=== PATIENT | female | born 1995 | race Caucasian/White ===

== ENCOUNTER → 2020-01-15 | Outpatient (CLI) | payer OTHER, SELFPAY ==
[2020-01-15 12:02] VITALS: BMI 31.1
== END | disposition home or self-care (01) ==
LOC: LABSPEC 15:29
PROVIDERS: Visit Provider Physician Assistant
DX: J02.9 Acute pharyngitis, unspecified (principal); R05 Cough
CPT/HCPCS: 87635; U0003

== ENCOUNTER → 2020-09-02 14:25 | Outpatient (CLI) | payer OTHER, SELFPAY ==
[2020-01-15 12:02] VITALS: BMI 31.1
[2020-09-10 08:33] LABS: HPV Reflexed? NOT INDICATED
== END ==
PROVIDERS: Visit Provider Obstetrics & Gynecology
DX: Z12.4 Encounter for screening for malignant neoplasm of cervix (principal)
CPT/HCPCS: 88175; G0145

== ENCOUNTER 2024-01-02 10:24 | Observation (INO) | payer OTHER, SELFPAY ==
[2024-01-02 10:25] VITALS: BP 136/97; PULSE 93; RESP 19; TEMP 36.1; O2SAT 100; BMI 31.1
[2024-01-02 10:36] VITALS: O2SAT 97
--- NOTE | 2024-01-02 10:36 | CT_ITS ---
STUDY: CT BRAIN WITHOUT CONTRAST REASON FOR EXAM: Female, 28 years old. LUE weak/tremor RADIATION DOSAGE (If Supplied By Facility): CTDIvol = ( 44.99 ) mGy, DLP = ( 782.05 ) mGycm TECHNIQUE: Transaxial CT imaging of the brain was performed without administration of intravenous contrast material. Individualized dose optimization techniques were used for this CT. COMPARISON: No relevant priors. FINDINGS: Normal soft tissue structures. Normal calvarium. Normal size ventricles and extra-axial spaces for the patient''s age. Normal white matter tracts of the cerebral hemispheres. Normal basal ganglia and thalami. Normal brainstem. Normal cerebellum. There is no intracranial hemorrhage. There are no findings of an acute ischemic infarction. Normal visualized paranasal sinuses. CT/Brain/Head without Contrast IMPRESSION: Normal unenhanced CT scan of the brain. Electronically Signed: Chino Cole MD at 11:27 EST ,
--- NOTE | 2024-01-02 10:36 | EKG12_ITS ---
Test Reason : NUMB/TINGLY Blood Pressure : */* mmHG Vent. Rate : 77 BPM Atrial Rate : 77 BPM P-R Int : 160 ms QRS Dur : 74 ms QT Int : 382 ms P-R-T Axes : 64 -2 60 degrees QTcB Int : 432 ms Normal sinus rhythm Normal ECG Confirmed by Andre Salas ([id number]), dictionary editor MICHELLE AGUILAR ([id number]) on 01/03/2024 9:54:28 AM Referred By: Confirmed By: Andre Salas
--- NOTE | 2024-01-02 10:37 | ED.VIS.STROK ---
HPI History of Present Illness Chief Complaint: Numb/Ting Informant: patient and PCP Narrative Narrative: 28-year-old female sent over from primary care office after being evaluated for left arm tremor and weakness that started 2 days ago. She states that about 1:15 in the afternoon 2 days ago, she felt nauseated and vomited, then about an hour later her left arm started tremoring and has not stopped ever since. She has been able to sleep, she is not sure if it is doing it when she is sleeping or not but while she has been awake it has been shaking and weak. She denies any other neurologic symptoms or headaches or neck pain or injury/falls; no problems with talking or understanding others, leg or facial involvement. She has had no syncope with any of this. She has family member that is had a stroke in the past. Patient has had seizures in the past, she states she had a grand mal seizure when she was 5 but never again, and she had some absence seizures, but these were when she was a child and she has not had any since. PFSH PFS Home Medications ?Medication ?Instructions ?Recorded ?Last Taken ?Type cariprazine 1.5 mg capsule 1.5 mg PO DAILY DEPRESSION 01/02/24 01/02/24 History (Vraylar) escitalopram oxalate 20 mg tablet 20 mg PO DAILY DEPRESSION 01/02/24 01/02/24 History norgestimate 0.25 mg-ethinyl 1 tab PO DAILY HORMONES 01/02/24 01/02/24 History estradiol 35 mcg tablet (Sprintec (28)) semaglutide (weight loss) 2.4 2.4 mg subcut MO DIABETES 01/02/24 12/31/23 History mg/0.75 mL subcutaneous pen injector Allergy/AdvReac Type Severity Reaction Status Date / Time ondansetron (From Zofran) Allergy Intermediate Hives Verified 01/02/24 10:26 codeine Allergy NEEDS Verified 01/02/24 10:26 FOLLOW-UP Social History (Updated 01/02/24 @ 10:[address] Kyle Erwin MD) Smoking Status: Never smoker substance use type: does not use ROS ROS ED Constitutional Constitutional ED: Denies chills or fever(s) Eyes Eyes: Denies change in vision or diplopia ENT ENT ED: Denies rhinorrhea or sore throat Cardiovascular Cardiovascular: Denies chest pain or palpitations Respiratory/Chest Respiratory/Chest: Denies cough or dyspnea Gastrointestinal Gastrointestinal: Reports nausea and vomiting; Denies abdominal pain or diarrhea Genitourinary Genitourinary ED: Denies dysuria or hematuria Musculoskeletal Musculoskeletal: Denies back pain or neck pain Integumentary Denies abscess or rash Neurologic Neurologic: Reports tremor(s) and weakness; Denies headache(s) or paresthesias Psychiatric Psychiatric: Denies anxiety or suicidal thoughts EXAM Physical Exam Const Vital Signs: 01/02/24 10:25 01/02/24 10:36 Temperature 97 F L Temperature Source Temporal Pulse Rate 93 Respiratory Rate 19 H Blood Pressure 136/97 H Blood Pressure Mean 110 Pulse Ox 100 97 Oxygen Delivery Method Room Air Room Air Positive well nourished and well developed General Appearance ED: well developed and NAD HEENT Reports moist mucous membranes normocephalic and atraumatic Eyes PERRL and EOMs intact bilaterally Neck full ROM and supple Resp normal respiratory effort and clear to auscultation bilaterally Cardio regular rate, regular rhythm and no murmurs GI non-tender and non-distended Auscultation: normoactive bowel sounds Palpation: soft Back/Spine no CVA tenderness General Back: other FROM Extremity normal to inspection General Extremety ED: Negative for edema, pulses abnormal or tenderness General Extremity: Negative for edema or pulses abnormal Neuro oriented x3, CN's II-XII intact bilaterally and no sensory deficits noted Neuro Narrative: No sensory deficits. No hemming attention. Normal speech. Normal cranial nerve exam. She is weak throughout all muscle groups proximally, distally including weaver dobby loom, of the left upper extremity and there is a constant tremor that does not [place] with performing [id number] which is otherwise normal bilaterally. [id number] bilaterally normal. She does briefly stop the tremor when she closes her eyes but then it restarts within a couple seconds. Sensorium / Orientation: awake and alert Psych mental status grossly normal Skin no rashes or lesions noted and no wounds NIHSS NIHSS Initial: 1a Level of Consciousness: 0 1b LOC Questions (Score 2 if aphasic/stupor): 0 1c LOC Commands (Only score 1st attempt): 0 2 Best Gaze (If aphasic, use reflexive mvmts.): 0 3 Visual: 0 4 Facial Palsy: 0 5 Motor Arm Right (UN = amputation/fusion): 0 5 Motor Arm Left: 1 6 Motor Leg Right: 0 6 Motor Leg Left: 0 7 Limb ataxia (Only + if out of proportion): 0 8 Sensory (Aphasia/stupor=0 or 1, coma=2): 0 9 Best Language: 0 10 Dysarthria (mute, coma=2, intubated=UN): 0 11 Extinction and Inattention (only scored if +): 0 Total Score: 1 MDM MDM MDM Narrative Medical decision making narrative: Although stroke is in the differential here, my suspicion is that this is something else neurologic such as simple partial seizure, or intracranial mass or mass or something else primary neurologic. Started with a plain CT of the head, my suspicion is that she will need to be admitted and have MRI and EEG testing. Her rhythm is normal and EKG is normal. I reviewed the CT images and report which I agree with, it is negative for anything acute. Her labs are also noted and unremarkable. Discussed with hospitalist for admission. Lab Data Attestation: I reviewed the patient's lab results. Labs: Laboratory Results - last 24 hr 01/02/24 10:41 WBC 9.5 RBC 4.73 Hgb 14.0 Hct 41.5 MCV 87.7 MCH 29.6 MCHC 33.7 RDW Std Deviation 39.8 RDW Coeff of Olga 12.4 Plt Count 323 MPV 9.0 Immature Gran % (Auto) 0.400 Neut % (Auto) 69.9 Lymph % (Auto) 24.0 Leslie % (Auto) 5.3 Eos % (Auto) 0.2 Baso % (Auto) 0.2 Absolute Neuts (auto) 6.7 Absolute Lymphs (auto) 2.28 Nucleated RBC % 0 PT 13.5 INR 1.0 APTT 25.9 Sodium 137 Potassium 3.7 Chloride 103 Carbon Dioxide 29.0 Anion Gap 5 BUN 13 Creatinine 0.98 Estim Creat Clear Calc 83.93 Est GFR (MDRD) Af Amer 86 Est GFR (MDRD) Non-Af 71 BUN/Creatinine Ratio 13.3 Glucose 89 Calcium 9.6 Troponin I High Sens < 3 L Radiography Diagnostic Testing: Clinical Impression(s) from Imaging Studies Brain CT 01/02/24 10:36 IMPRESSION: Normal unenhanced CT scan of the brain. Electronically Signed: Chino Cole MD at 11:27 EST , Rhythm Strip Rhythm Strip: Sinus Rhythm Rate: 90 Ectopy: None EKG Initial EKG: Attestation: I personally reviewed and interpreted this EKG as follows: Interpretation: Sinus Rhythm and No Acute Injury Pattern Comments: Nml axis & intervals; nml EKG Management Discussion w/another healthcare provider: Hospitalist Stroke Documentation Questions Stroke Team Activated: No (Due to timing) Was Patient considered for Endovascular Intervention?: No-CTA not indicated IV Thrombolytic Administered: No (Due to timing) Discharge Plan Dx/Rx/DC Orders Clinical Impression: Left arm weakness, Seizure-like activity Disposition Disposition: Acute Care Hospital [facility] [place] [facility]
[2024-01-02 10:49] LABS: Absolute Lymphocyte Count 2.28 X10^3/uL (0.83-4.51); Absolute Neutrophil Count 6.7 X10^3/uL (2.0-7.7); Basophil# 0.02 X10^3/uL; Basophil% 0.2 % (0-1); Eosinophil# 0.02 X10^3/uL; Eosinophils% 0.2 % (0-5); Hematocrit 41.5 % (37-47); Lymphocyte # 2.28 X10^3/ul (0.83-4.51); Mean Corp Hgb Conc 33.7 g/dL (32-36); Mean Corpuscular Hgb 29.6 pg (27.0-32.0); Mean Corpuscular Volume 87.7 fL (81-99); Monocyte% 5.3 % (0-10); NRBC Flagged by Analyzer 0 % (0-5); Neutrophil # 6.65 X10^3/uL (2.7-7.7); Neutrophil % 69.9 % (47-70); Platelet Count 323 K/mm3 (150-450); RBC Distribution Width CV 12.4 % (11.6-14.6); RBC Distribution Width SD 39.8 fl (35.1-43.9); Red Blood Count 4.73 M/mm3 (4.2-5.4); White Blood Count 9.5 K/mm3 (4.4-11.0)
[2024-01-02 10:55] LABS: Prothrombin Time (Protime)PT. 13.5 SECONDS (11.7-14.9)
[2024-01-02 10:56] LABS: Partial Thromboplast Time 25.9 Seconds (24.1-36.2)
[2024-01-02 11:03] LABS: Anion Gap 5 (5-15); BUN 13 mg/dL (7-18); BUN/Creat Ratio 13.3 RATIO (10-20); Calcium,Total 9.6 mg/dL (8.5-10.1); Chloride 103 mmol/L (98-107); Creatinine, Serum 0.98 mg/dL (0.55-1.02); EST Glomerular Filtration Rate 71 mL/min (>60); Est Glom Filt Rate - Afr Amer 86 mL/min (>60); Estimated Creatinine Clearance 83.93 ml/min; Glucose 89 mg/dL (74-106); Potassium 3.7 mmol/L (3.5-5.1); Sodium Level 137 mmol/L (136-145); Troponin-I HS < 3 pg/mL (3.0-54.0)
--- NOTE | 2024-01-02 12:18 | CT_ITS ---
STUDY: CTA HEAD AND NECK WITH CONTRAST REASON FOR EXAM: Female, 28 years old. R arm weakness RADIATION DOSAGE (If Supplied By Facility): CTDIvol = ( 15.34 ) mGy, DLP = ( 701.52 ) mGycm TECHNIQUE: CT angiography was performed with a multi-detector CT scanner. Data acquisition was obtained from the skull base through the vertex following intravenous administration of 100mL Isovue 370. MIP images were reconstructed from the axial data set. Post-processing of the angiographic images was performed, with multiplanar reformation and 3D reconstruction. Individualized dose optimization techniques were used for this CT. COMPARISON: No relevant priors. FINDINGS: Normal bilateral petrous carotid arteries. Normal right cavernous carotid artery with a normal supraclinoid bifurcation. Normal left cavernous carotid artery with a normal supraclinoid bifurcation. Normal right A1 segments of the anterior cerebral artery. Normal left A1 segments of the anterior cerebral artery. Normal intact anterior communicating artery (ACOM). Normal bilateral A2 segments of the anterior cerebral arteries. Normal right M1 and M2 segments of the middle cerebral arteries, with a normal M1 bifurcation. Normal left M1 and M2 segments of the middle cerebral arteries, with a normal M1 bifurcation. Normal right posterior communicating artery (PCOM). Normal left posterior communicating artery (PCOM). Normal bilateral vertebral arteries. Normal basilar artery with a normal basilar bifurcation. The visualized bilateral superior cerebellar (SCA) arteries are normal. Normal bilateral P1, P2 and visualized P3 segments of the posterior cerebral arteries. There is no demonstrated aneurysm of the tunica-biloxi of [place]. There is no demonstrated abnormality of the visualized brain. AORTIC ARCH: Normal visualized aortic arch. Normal origins of the brachiocephalic, left common carotid, and left subclavian arteries. RIGHT CAROTID ARTERIES: Normal right common carotid artery (CCA). Normal right common carotid bulb. Normal origin of the right internal carotid (ICA) artery without a hemodynamically significant stenosis. Normal visualized cervical portion of the right internal carotid artery. Normal origin of the right external carotid artery (ECA). LEFT CAROTID ARTERIES: Normal left common carotid artery (CCA). Normal left common carotid bulb. Normal origin of the left internal carotid (ICA) artery without a hemodynamically significant stenosis. Normal visualized cervical portion of the left internal carotid artery. Normal origin of the left external carotid artery (ECA). VERTEBRAL ARTERIES: Normal bilateral vertebral arteries. CT/CTA Head AND Neck W/ Contrast IMPRESSION: Normal CTA Head and neck with contrast. Electronically Signed: Chino Cole MD at 12:56 EST ,
--- NOTE | 2024-01-02 12:18 | MRI_ITS ---
STUDY: MRI CERVICAL SPINE WITHOUT CONTRAST REASON FOR EXAM: Female, 28 years old. R arm weakness TECHNIQUE: Standardized fat and water weighted pulse sequences were obtained in the sagittal and axial planes. COMPARISON: None FINDINGS: Normal foramen magnum and brainstem-cervical cord junction. Normal craniovertebral junction. Normal anterior atlantoaxial articulation. Normal odontoid process. There is reversal of the normal cervical lordosis. There is no acute fracture. Normal vertebral bodies and posterior osseous elements. C2-3: Normal endplates. Normal disc height, signal and morphology. Normal central canal and intervertebral neural foramina. C3-4: Disc bulge. Normal central canal and intervertebral neural foramina. C4-5: Disc bulge with mild spurring. Normal central canal and intervertebral neural foramina. C5-6: Normal endplates. Normal disc height, signal and morphology. Normal central canal and intervertebral neural foramina. C6-7: Mild spurring with central right paracentral disc protrusion, series 12 image 38. Mild canal stenosis. Uncovertebral spurring and mild left foraminal narrowing. C7-T1: Normal endplates. Normal disc height, signal and morphology. Normal central canal and intervertebral neural foramina. Normal cervical cord. Normal visualized soft tissue structures. MRI/Spine Cervical (Routine) IMPRESSION: Disc herniation to the right at C6-7. Electronically Signed: Kyle James MD at 20:15 EST ,
--- NOTE | 2024-01-02 12:18 | MRI_ITS ---
STUDY: MRI BRAIN WITH AND WITHOUT CONTRAST REASON FOR EXAM: Female, 28 years old. R arm tremor and weakness TECHNIQUE: Standardized multiplanar fat and water weighted pulse sequences were obtained. IV 16cc Clariscan was administered for the contrast portion of the examination. COMPARISON: CT FINDINGS: Normal size of the ventricles and extra-axial spaces for the patient''s age. Normal white matter tracts of the supratentorial brain. There is no evidence for recent intracranial ischemia or other cause of cytotoxic edema on diffusion weighted imaging (DWI). Normal T2* images of the brain without demonstrated susceptibility artifact. There is no demonstrated hemosiderin stain. Normal bilateral basal ganglia. Normal thalami. There is no extra-axial fluid accumulation. Normal flow voids within the major intracranial circulation suggesting patency by spin echo criteria. Normal venous enhancement. There is no enhancing intra-axial or extra-axial abnormality. Normal sella turcica, pituitary gland, infundibular stalk, optic chiasm and hypothalamus. Normal tectal plate and pineal gland. Normal midbrain, efe and medulla. Normal cerebellum. Normal basal cisterns. Normal bilateral temporal bones. Normal bilateral internal auditory canals. No demonstrated orbital abnormality, within the constraints of a routine brain study. Normal visualized paranasal sinuses. Normal calvarium and skull base. Normal visualized soft tissue structures. Normal visualized upper cervical spine. MRI/Brain W/WO Contrast IMPRESSION: Normal unenhanced and enhanced MRI of the brain. Electronically Signed: Kyle James MD at 20:10 EST ,
--- NOTE | 2024-01-02 12:19 | HP.PCM.HOS_ITS ---
HPI - General General Date of Admission: 01/02/24 Date of Service: 01/02/24 Chief Complaint: Abnormal left upper extremity movement/weakness HPI Narrative BRIA VELÁZQUEZ, is a 28 F who presented to the emergency department at [facility] on 01/02/2024 due to persistent left upper extremity abnormal movement and weakness. Patient stated her symptoms started on Sunday. She stated she ate lunch and then had some nausea and vomiting following which has been intermittent since that point in time. After that she developed some head- nodding which was involuntary. This resolved and then she had bilateral upper extremity twitching. The right upper extremity twitching ceased on the same day however she has had persistent left upper extremity twitching since that point in time. She did go to outside hospital and was sent home from the emergency department on Sunday. Since it has been persistent she came to this facility. She does have a positive family history of her mother having a stroke in her 40s and from this with family happening to decide to remove her from life support and her father having a massive PE. She also was recently in October and currently trying to finalize the selling of her parents house where she and her are living as a had to go through probate court as it was not in the trust. It sounds as if her work has been stressful lately as well. She denies any other associated symptoms other than some intermittent nausea and vomiting. She denies the possibility that she could be and test is pending. She states they use condoms and is on control at this time. She has never had hypercoagulable workup. Vital signs at the time of presentation showed temperature of 97, heart rate 93, blood pressure 136/97, respiratory was 19 and pulse ox was 100% on room air. CBC, coags, and chemistry panel were all unremarkable. CT of the brain was normal. CTA of the head and neck was normal. [facility] Medical History Depression Home Medications ?Medication ?Instructions ?Recorded ?Last Taken ?Type cariprazine 1.5 mg capsule 1.5 mg PO DAILY DEPRESSION 01/02/24 01/02/24 History (Vraylar) escitalopram oxalate 20 mg tablet 20 mg PO DAILY DEPRESSION 01/02/24 01/02/24 History norgestimate 0.25 mg-ethinyl 1 tab PO DAILY HORMONES 01/02/24 01/02/24 History estradiol 35 mcg tablet (Sprintec (28)) semaglutide (weight loss) 2.4 2.4 mg subcut MO DIABETES 01/02/24 12/31/23 History mg/0.75 mL subcutaneous pen injector Allergy/AdvReac Type Severity Reaction Status Date / Time ondansetron (From Zofran) Allergy Intermediate Hives Verified 01/02/24 10:26 codeine Allergy NEEDS Verified 01/02/24 10:26 FOLLOW-UP Family History (Updated 01/02/24 @ 17:[address] Maria Isabel Banerjee, ) Mother CVA (cerebral vascular accident) Diabetes Father Pulmonary embolus no surgical history Social History (Updated 01/02/24 @ 17:[address] 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 Smoking Status: Former smoker alcohol intake: never substance use type: does not use ROS Constitutional Constitutional: Reports weakness; Denies anorexia, change in weight, chills, fatigue, fever(s), malaise, night sweats or other Eyes Eyes: Denies blurry vision, change in eye color, change in vision, discharge from eye(s), double vision, erythema, eye pain, loss of vision or other ENT HEENT: Denies abnormal hearing, dysphagia, ear pain, epistaxis, headache(s), hearing loss, nasal congestion, nasal discharge, post nasal drip, sinus pressure, sore throat or other Cardiovascular Cardiovascular: Denies chest pain, claudication, dyspnea on exertion, edema, lightheadedness, orthopnea, palpitations, paroxysmal nocturnal dyspnea, rapid heart rate, syncope or other Respiratory/Chest Respiratory/Chest: Denies cough, dyspnea, excessive phlegm production, hemoptysis, productive cough, shortness of breath at rest, shortness of breath with exertion, wheezing or other Gastrointestinal Gastrointestinal: Reports nausea and vomiting; Denies abdominal pain, coffee ground emesis, constipation, diarrhea, dyspepsia, hematemesis, hematochezia, loose stools, melena or other Genitourinary Genitourinary: Denies burning urination, difficulty urinating, dysuria, hematuria, nocturia, urinary frequency, urinary hesitancy, urinary incontinence, urinary urgency or other Musculoskeletal Musculoskeletal: Denies arthralgias, back pain, joint pain, joint stiffness, joint swelling, myalgias, neck pain or other Neurologic Neurologic: Reports focal weakness and tremor(s) Psychiatric Psychiatric: Reports anxiety and depression; Denies homicidal ideation, suicidal ideation or other Endocrine Endocrinology: Denies change in body appearance, cold intolerance, excessive sweating, heat intolerance, polydipsia, polyuria or other Hematologic/Lymphatic Hematologic/Lymphatic: Denies anemia, easy bleeding, easy bruising, lymphadenopathy or other Allergic/Immunologic Allergic/Immunologic: Denies rhinitis, hives, eczemia, asthma or other Vital Signs Vital Signs Vital Signs: 01/02/24 10:25 01/02/24 10:36 Temperature 97 F L Temperature Source Temporal Pulse Rate 93 Respiratory Rate 19 H Blood Pressure 136/97 H Blood Pressure Mean 110 Pulse Ox 100 97 Oxygen Delivery Method Room Air Room Air Weight Weight: 79.742 kg Body Mass Index (BMI) 31.1 Physical Exam Const alert, oriented x3, no apparent distress, healthy appearing and well nourished Constitutional Narrative: Young, white female, sitting up in bed, appears comfortable, nontoxic, at bedside General Appearance: cooperative HEENT normocephalic, head/scalp atraumatic, hearing grossly normal bilaterally and moist oral mucous membranes HEENT Narrative: Mallampati 2, no thrush Eyes PERRL, EOMs intact bilaterally and conjunctivae normal Eyes Narrative: No scleral icterus Resp normal respiratory effort, no retractions, no use of accessory muscles and clear to auscultation bilaterally Auscultation: Negative for rales, rhonchi or wheezes Cardio regular rate, regular rhythm, S1 normal heart sound, S2 normal heart sound, no murmurs, no rub, no gallops and no clicks GI normal to inspection, nondistended, normoactive bowel sounds, soft to palpation and non-tender Extremity no clubbing, cyanosis or edema Extremity Narrative: Pedal and radial pulses are 2+ Neuro oriented x3, CN's II-XII intact bilaterally and moves all extremities Neuro Narrative: Patient with weakness at left shoulder with abduction, left triceps, and wrist extension as well as mounted police strength seems to be reduced, no paresthesias, reflexes are normal bilateral upper and lower extremities, no clonus, Babinski is unremarkable, persistent rhythmic twitching of left upper extremity that seems to [place] with intense distraction, [id number] normal on right and left however tremor noted throughout activity but no past-pointing or difficulty touching my finger, lower extremity strength is within normal limits Speech: speech normal Psych Psych Narrative: Seems mildly anxious, eye contact is fair, answers questions appropriately, very pleasant Results Lab / Micro Data 01/02/24 10:41 01/02/24 10:41 Labs: Laboratory Results - last 24 hr 01/02/24 10:41: WBC 9.5, RBC 4.73, Hgb 14.0, Hct 41.5, MCV 87.7, MCH 29.6, MCHC 33.7, RDW Std Deviation 39.8, RDW Coeff of Olga 12.4, Plt Count 323, MPV 9.0, Immature Gran % (Auto) 0.400, Neut % (Auto) 69.9, Lymph % (Auto) 24.0, [place] % (Auto) 5.3, Eos % (Auto) 0.2, Baso % (Auto) 0.2, Absolute Neuts (auto) 6.7, Absolute Lymphs (auto) 2.28, Nucleated RBC % 0, PT 13.5, INR 1.0, APTT 25.9, Sodium 137, Potassium 3.7, Chloride 103, Carbon Dioxide 29.0, Anion Gap 5, BUN 13, Creatinine 0.98, Estim Creat Clear Calc 83.93, Est GFR (MDRD) Af Amer 86, Est GFR (MDRD) Non-Af 71, BUN/Creatinine Ratio 13.3, Glucose 89, Calcium 9.6, T roponin I High Sens < 3 L Rhythm Strip Rhythm Strip: Sinus Rhythm Rate: 90 Ectopy: None Imaging Radiology Impression Brain CT 01/02/24 10:36 IMPRESSION: Normal unenhanced CT scan of the brain. Electronically Signed: Chino Cole MD at 11:27 EST , Assessment & Plan Assessment/Plan (1) Left arm weakness: (2) Neurologic abnormality: (3) Nausea and vomiting: PLAN: Plan Neurologic abnormality left upper extremity/left upper extremity weakness -Patient with odd conglomeration of neurological abnormalities to include rhythmic head jerking which has subsided, bilateral upper extremity jerking with resolution of right upper extremity and persistent left upper extremity rhythmic jerking -Patient also complaining of weakness in her left arm -Jerking subsided with significant distraction -CT and CTA head and neck unremarkable -Check MRI with and without contrast of brain/MRI cervical spine due to arm weakness -Check EEG -B12 was obtained and within normal limits -Neuroconsultation -Suspect this may be conversion disorder -Patient has history of depression and under a lot of stress lately both at work and personal life Nausea and vomiting -Seems to be intermittent -May also be psychosomatic -as needed antiemetics available -Check test History of depression -Continue home antidepressants Family history of clotting -Highly recommend outpatient workup with hematology DVT prophylaxis -subcu Lovenox CODE STATUS Full code Charges/Coding Visit Charges Inpatient E&M: 92973 Init Hosp L2
[2024-01-02 12:22] VITALS: BP 108/75; PULSE 86; RESP 19; TEMP 36.8; O2SAT 100
[2024-01-02 12:25] VITALS: BP 114/87; PULSE 81
[2024-01-02 13:32] VITALS: BMI 26.9
[2024-01-02 13:54] LABS: Vitamin B12 1059 pg/mL (211-911)
[2024-01-02 17:29] LABS: Bedside Glucose 86 mg/dL (74-106)
[2024-01-02] MEDS: proCHLORPERazine 10 MG/2 ML Vial 5 MG IV (19:08)
[2024-01-02 20:23] VITALS: BP 115/80; PULSE 82; RESP 18; TEMP 36.9; O2SAT 98
[2024-01-02 20:32] LABS: Internal QC Validated? YES +Cl - CLEAR BKGD; Pregnancy, Urine Negative Negative
[2024-01-02 22:16] LABS: Bedside Glucose 109 mg/dL (74-106)
[2024-01-02 23:40] LABS: Hemoglobin A1c 4.8 % (3.8-5.6)
[2024-01-03 03:38] VITALS: BP 113/74; PULSE 83; RESP 18; TEMP 36.7; O2SAT 99
[2024-01-03 07:08] LABS: Bedside Glucose 105 mg/dL (74-106)
[2024-01-03 08:04] LABS: T4 Free Direct 0.86 ng/dL (0.76-1.46)
--- NOTE | 2024-01-03 08:08 | CON.PCM.NE_ITS ---
Assessment and Plan: Neuro Assessment/Plan BRIA VELÁZQUEZ is a 28 F with a past medical history of depression, being evaluated by Teleneurology for arm twitching and L sided weakness. Based on history, there seem no clear exacerbating factors except potentially this vomitting but no clear other symptoms of GI distress or potential viral abnormality. On exam, her twitching is variable and not clear myoclonic in nature. There is no component of dystonia. The tremor on the L appears very distractable and not of consistent frequency or amplitude. Given her benign imaging and the lenghth of her symptoms, would not consider cerebrovascular causes. Unclear if this is related to a viral prodrome but history not suggestive and symptoms are not consistent with what would be seen with a chorea. At this point, potentially related to the headache or cannot rule out epileptic cause to jerking. Cannot rule out thing functional but diagnosis of exclusion at this time. Plan: - continue treating headache - pending EEG - UA and UDS - if symptoms continue to improve, followup with neurology outpatient. I personally attended this patient and spent a total time of 45 minutes evaluating this patient including clinical assessment, review of chart, medical history imaging, and determining appropriate treatment and workup. HPI Consult Data Date of Consult: 04/14/24 HPI Narrative HPI Narrative: 28-year-old female sent over from primary care office after being evaluated for left arm tremor and weakness that started 2 days ago. She states that about 1:15 in the afternoon 2 days ago, she felt nauseated and vomited, then about an hour later her left arm started tremoring and has not stopped ever since. She has been able to sleep, she is not sure if it is doing it when she is sleeping or not but while she has been awake it has been shaking and weak. She denies any other neurologic symptoms or headaches or neck pain or injury/falls; no problems with talking or understanding others, leg or facial involvement. She has had no syncope with any of this. She has family member that is had a stroke in the past. Patient has had seizures in the past, she states she had a grand mal seizure when she was 5 but never again, and she had some absence seizures, but these were when she was a child and she has not had any since. Neurologic History Started after having some vomitting. Never had tremor before. Sunday was involving both arms, lately in the L arm. No jerking or shaking in the legs. Pt is L handed. Has been having difficulty with eating and doing daily activities. Speech is normal and pt has a lisp at baseline. When she tried to pick something up, she notices the hearing healthcare practitioner on the L hand is not as strong as normal. Has had a SHELTON with a couple days, has improved since coming to the hospital. Normally will have some migraine but not a lot. No eye pain, diplopia, blurred vision. No tripping, falling, no difficulty walking. No dizziness. The tremor, checking BP makes her hand shake less. If she lays on it does not shake. Nothing seems to make it worse. No noted twitching out of sleep. No medication changes or stoppage of medications. [facility] Medical History Depression Home Medications ?Medication ?Instructions ?Recorded ?Last Taken ?Type cariprazine 1.5 mg capsule 1.5 mg PO DAILY DEPRESSION 01/02/24 01/02/24 History (Vraylar) escitalopram oxalate 20 mg tablet 20 mg PO DAILY DEPRE SSION 01/02/24 01/02/24 History norgestimate 0.25 mg-ethinyl 1 tab PO DAILY HORMONES 1 03/03/23 01/02/24 History estradiol 35 mcg tablet (Sprintec (28)) semaglutide (weight loss) 2.4 2.4 mg subcut MO DIABETE S 01/02/24 12/31/23 History mg/0.75 mL subcutaneous pen injector scopolamine base 1 mg over 3 days 1 patch transdermal Q72H PRN 01/03/24 Unknown Rx transdermal patch nausea and vomiting #4 ea Allergy/AdvReac Type Severity Reaction Status Date / Time ondansetron (From Zofran) Allergy Intermediate Hives Verified 01/02/24 10:26 codeine Allergy NEEDS Verified 01/02/24 10:26 FOLLOW-UP Family History (Updated 01/02/24 @ 17:[address] Maria Isabel Banerjee DO) Mother CVA (cerebral vascular accident) Diabetes Father Pulmonary embolus Surgical History no surgical history Social History (Updated 01/02/24 @ 17:[address] 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 Smoking Status: Never smoker alcohol intake: never substance use type: does not use Vital Signs Vital Signs Vital Signs: 01/02/24 10:25 01/02/24 10:36 01/02/24 12:22 Temperature 97 F L 98.3 F Temperature Source Temporal Pulse Rate 93 86 Pulse Strength Respiratory Rate 19 H 19 H Respiratory Effort Respiratory Depth Respiratory Pattern Blood Pressure 136/97 H 108/75 Blood Pressure Mean 110 86 Blood Pressure Source Blood Pressure Position Blood Pressure Location Pulse Ox 100 97 100 Oxygen Delivery Method Room Air Room Air 01/02/24 12:25 01/02/24 13:58 01/02/24 20:23 Temperature 98.4 F Temperature Source Oral Pulse Rate 81 82 Pulse Strength Respiratory Rate 18 Respiratory Effort Normal Respiratory Depth Normal Respiratory Pattern Normal Blood Pressure 114/87 H 115/80 Blood Pressure Mean 96 91 Blood Pressure Source Monitor Blood Pressure Position Semi-Fowlers Blood Pressure Location Right Arm Pulse Ox 98 Oxygen Delivery Method Room Air Room Air 01/02/24 20:28 01/02/24 20:29 01/03/24 03:38 Temperature 98.0 F Temperature Source Oral Pulse Rate 83 Pulse Strength Normal (2+) Respiratory Rate 18 Respiratory Effort Normal Non-Labored Respiratory Depth Normal Respiratory Pattern Normal Blood Pressure 113/74 Blood Pressure Mean 87 Blood Pressure Source Monitor Blood Pressure Position Semi-Fowlers Blood Pressure Location Left Arm Pulse Ox 99 Oxygen Delivery Method Room Air Room Air 01/03/24 03:39 Temperature Temperature Source Pulse Rate Pulse Strength Respiratory Rate Respiratory Effort Normal Non-Labored Respiratory Depth Normal Respiratory Pattern Normal Blood Pressure Blood Pressure Mean Blood Pressure Source Blood Pressure Position Blood Pressure Location Pulse Ox Oxygen Delivery Method Room Air Weight Weight: 69.1 kg Body Mass Index (BMI) 26.9 EEG Results Procedure Details EEG Procedure Details: BRIA VELÁZQUEZ is a 28 year old F with a past medical history of , who presents for evaluation of Electroencephalogram on DATE at TIME Physical Exam Narrative -? General: Laying comfortably in bed; in no acute distress. -? HENT: Normal oropharynx and mucosa. Normal external appearance of ears and nose. Exophthalmos. -? Neck: Supple, no pain or tenderness -? CV:? No peripheral edema. -? Pulmonary:? Normal respiratory effort. -? Ext: No cyanosis, edema, or deformity -? Skin: No rash. Normal palpation of skin.? -? Musculoskeletal: full range of motion; no joint tenderness. Normal digits and nails by inspection. No clubbing. -? NEURO: -? Mental Status: The patient was alert and oriented to time, place, and person. Normal recent/remote memory, concentration, and general fund of knowledge. -? Language: speech is at baseline, slight lisp present? Naming, repetition, fluency, and comprehension intact. -? Cranial Nerves: EOMI, visual gonsalez full, no facial asymmetry, facial sensation intact, hearing intact, tongue midline, no evidence of atrophy or fibrillations. -? Motor: Detailed strength exam as performed by the nurse/MURRAY and witnessed by the physician: l R L SA 5 4 EE 5 4 EF 5 4 WE WF Skein Winder 5 4 HF 5 5 KE KF 5 5 DF 5 5 PF Tremor in the LUE is variable, distractible, the tremor goes away completely when talking about her eeg There bilateral twitching with changes in posture. The head twitches to the L occasionally in swmall twitches -? Tone: is normal and bulk is normal, maybe slight inc tone on the L but no rigidity -? Sensation- LT dim on the R forearm -? Coordination: No dysmetria on [id number], finger follow finger or [id number]. -? Gait- deferred Lab / Micro Data 01/02/24 10:41 01/02/24 10:41 Labs: Laboratory Results - last 24 hr 01/02/24 10:41: WBC 9.5, RBC 4.73, Hgb 14.0, Hct 41.5, MCV 87.7, MCH 29.6, MCHC 33.7, RDW Std Deviation 39.8, RDW Coeff of Olga 12.4, Plt Count 323, MPV 9.0, Immature Gran % (Auto) 0.400, Neut % (Auto) 69.9, Lymph % (Auto) 24.0, [place] % (Auto) 5.3, Eos % (Auto) 0.2, Baso % (Auto) 0.2, Absolute Neuts (auto) 6.7, Absolute Lymphs (auto) 2.28, Nucleated RBC % 0, PT 13.5, INR 1.0, APTT 25.9, Sodium 137, Potassium 3.7, Chloride 103, Carbon Dioxide 29.0, Anion Gap 5, BUN 13, Creatinine 0.98, Estim Creat Clear Calc 83.93, Est GFR (MDRD) Af Amer 86, Est GFR (MDRD) Non-Af 71, BUN/Creatinine Ratio 13.3, Glucose 89, Hemoglobin A1c 4.8, Calcium 9.6, Troponin I High Sens < 3 L, Vitamin B12 1059 H, TSH 3.930 H, Free T4 0.86 01/02/24 17:09: POC Glucose 86 01/02/24 20:10: Urine Test Negative 01/02/24 21:33: POC Glucose 109 H 01/03/24 06:06: POC Glucose 105 Rhythm Strip Rhythm Strip: Sinus Rhythm Rate: 90 Ectopy: None Imaging Radiology Impression Brain CT 01/02/24 10:36 IMPRESSION: Normal unenhanced CT scan of the brain. Electronically Signed: Chino Cole MD at 11:27 EST , Brain MRI 01/02/24 12:18 IMPRESSION: Normal unenhanced and enhanced MRI of the brain. Electronically Signed: Kyle James MD at 20:10 EST , Cervical Spine MRI 01/02/24 12:18 IMPRESSION: Disc herniation to the right at C6-7. Electronically Signed: Kyle James MD at 20:15 EST , Head/Neck CTA 01/02/24 12:18 IMPRESSION: Normal CTA Head and neck with contrast. Electronically Signed: Chino Cole MD at 12:56 EST , Active Medications Active Medications Active Medications: Current Medications Generic Name Dose Route Start Last Admin Trade Name Freq PRN Reason Stop Dose Admin Acetaminophen 650 mg 01/02/24 13:31 Acetaminophen 325 Mg Tablet PO Q6H PRN PRN Pain 1-10 Or Fever>100.7 Albuterol Sulfate 2.5 mg 01/02/24 13:31 Albuterol 2.5 Mg/3 Ml Vial.Neb. INHALATION Q2H PRN PRN SOB &/OR WHEEZING Enoxaparin Sodium 40 mg 01/03/24 10:00 Enoxaparin 40 Mg/0.4 Ml Syringe SC DAILY LEELEE Escitalopram Oxalate 20 mg 01/03/24 10:00 Escitalopram Oxalate 20 Mg Tablet PO DAILY LEELEE Glucagon 1 mg 01/02/24 13:31 Glucagon 1 Mg/Ml Syringe IM X1 PRN HYPOGLYCEMIA Protocol Dextrose 250 mls @ 0 mls/hr 01/02/24 13:31 Dextrose 10%-Water IV .Q0M PRN HYPOGLYCEMIA Protocol As Directed Sodium Chloride 500 mls @ 15 mls/hr 01/02/24 13:42 IV .[id number] PRN Saline Flush Sodium Chloride 500 mls @ 15 mls/hr 01/02/24 13:42 IV .[id number] PRN Additional IVPB Infusion Ibuprofen 400 mg 01/02/24 13:31 Ibuprofen 400 Mg Tablet PO Q4H PRN PRN Pain 1-10 Or Fever >100.7 Influenza Virus Vaccine 45 mcg 01/03/24 10:00 Flu Vacc (6mos Up)/Pf 45 Mcg/0.5 Ml Syringe IM 01/03/24 10:01 .ONCE ONE Insulin Human Lispro 0 unit 01/02/24 16:00 01/03/24 06:09 Insulin Lispro 100 Unit/Ml Insuln.Pen SC Not Given ACHS [facility] Protocol Norgestimate 1 each 01/03/24 10:00 Norgestimate-Ethinyl Estradiol 1 Each Tablet PO DAILY [facility] Prochlorperazine Edisylate 5 mg 01/02/24 17:22 01/02/24 19:08 Prochlorperazine 10 Mg/2 Ml Vial IV 5 mg Q4H PRN PRN Administration NAUSEA/VOMITING Senna/Docusate Sodium 2 tablet 01/02/24 13:31 Senna/Docusate Sodium 1 Tablet PO BID PRN PRN Constipation Sodium Chloride 10 - 40 ml 01/02/24 13:42 0.9% Saline Lock 10 Ml Syringe IV UD PRN SALINE FLUSH
[2024-01-03] MEDS: CARIPRAZINE HCL 1.5 MG CAPSULE PO (09:22)
[2024-01-03] MEDS: norgestimate-ethinyl estradioL 1 EACH TABLET PO (09:22)
[2024-01-03] MEDS: Escitalopram Oxalate 20 MG Tablet PO (09:22)
[2024-01-03 11:37] LABS: Mucous, Urine 0 SEEN /hpf (<or=2+)
[2024-01-03 11:40] VITALS: BP 116/92; PULSE 88; RESP 14; TEMP 36.8; O2SAT 100
[2024-01-03 11:40] LABS: Color, Urine Yellow (Yellow); Glucose, Dipstick Normal (Normal); Ketone-Dipstick Negative (Negative); Leukocyte Esterase-Dipstick 500 /ul (Negative); Nitrite-Dipstick Negative (Negative); Occult Blood-Urine Negative /ul (Negative); Protein-Dipstick 30 mg/dl (Negative); Urine Bilirubin Dipstick Negative (Negative); Urine Clarity Sl. Cloudy (Clear); Urine Urobilinogen 1 mg/dl (Normal)
[2024-01-03] MEDS: Ibuprofen 400 MG Tablet PO (11:45)
[2024-01-03 11:55] LABS: Amphetamine Urine VISTA NEGATIVE (<1000 ng/mL); Barbiturate Urine VISTA NEGATIVE (< 200 ng/mL); Benzodiazepine Urine VISTA NEGATIVE (< 200 ng/mL); Cocaine Urine VISTA NEGATIVE (< 300 ng/mL); Ecstacy Urine VISTA NEGATIVE (< 500 ng/mL); Methadone Urine VISTA NEGATIVE (< 300 ng/mL); PCP Urine VISTA NEGATIVE (< 25 ng/mL); THC Urine VISTA NEGATIVE (< 50 ng/mL); Vista UDS pH Range 5
[2024-01-03 12:01] LABS: Bacteria 1+ /hpf (None Seen); Squamous Epithelial Cells - UA 5-10 SEEN /hpf (5-10)
[2024-01-03 12:02] LABS: Red Blood Cells-Urine 0 SEEN /hpf (0-5); White Blood Cells 0-5 SEEN /hpf (0-5)
[2024-01-03 12:15] LABS: Bedside Glucose 98 mg/dL (74-106)
[2024-01-03 12:51] VITALS: O2SAT 100
--- NOTE | 2024-01-03 14:30 | CASEMGMT ---
Social Work SW met with pt and introduced self and role of SW, pt agreeable to meet with SW. Pt's spouse was in the room and pt requesting spouse stay for conversation with SW. SW spoke with pt regarding mental health. Pt able to identify past traumas and current life stressors. Pt is currently taking an anti depressant which is managed by her PCP Fátima Eubanks. Pt states she has done in person counseling previously and more recently telehealth. Pt states she did not like it and stopped. SW explored pt's experiences with counseling. Active listening and support provided. SW encouraged pt to try counseling again and discussed benefits. A list of area counselors and an information sheet on Behavioral Health provided to pt. Pt and spouse in agreement that it may be beneficial for pt to restart counseling. SW also provided pt with written information on grounding techniques and discuss this. Pt appreciative. Pt to review list and states she will follow up to find a counselor. Pt denies further needs at this time. HILTON Moore
--- NOTE | 2024-01-03 14:48 | DS.PCM_ITS ---
Providers Date of Admission: 01/02/24 Date of Discharge: 01/03/24 Primary Care Physician: GABINO Merida, [facility] Consultations 01/02/24 13:31 neuro [Consult: Tele-Neurology] Routine Consulting Provider: [facility] Reason for Consult: R arm weakness and involuntary movement EMERGENT Consult: No MD Notified: Yes Date Notified: 01/02/24 Time Notified: 15:09 Method of Notification: Answering Service Nursing Unit Staff Notify [facility] of Tele-Neurology Consult: Yes Reason For Visit: R ARM WEAKNESS Diagnosis Discharge Diagnosis (1) Left arm weakness: Status: Acute Code(s): R29.898 - Other symptoms and signs involving the musculoskeletal system (2) Neurologic abnormality: Status: Acute Code(s): R29.818 - Other symptoms and signs involving the nervous system (3) Nausea and vomiting: Status: Acute Code(s): R11.2 - Nausea with vomiting, unspecified Plan Neurologic abnormality left upper extremity/left upper extremity weakness -Patient with odd conglomeration of neurological abnormalities to include rhythmic head jerking which has subsided, bilateral upper extremity jerking with resolution of right upper extremity and persistent left upper extremity rhythmic jerking -Patient also complaining of weakness in her left arm -Jerking subsided with significant distraction -CT and CTA head and neck unremarkable -Check MRI with and without contrast of brain/MRI cervical spine due to arm weakness -Check EEG -B12 was obtained and within normal limits -Neuroconsultation -Suspect this may be conversion disorder -Patient has history of depression and under a lot of stress lately both at work and personal life Nausea and vomiting -Seems to be intermittent -May also be psychosomatic -as needed antiemetics available -Check test History of depression -Continue home antidepressants Family history of clotting -Highly recommend outpatient workup with hematology DVT prophylaxis -subcu Lovenox CODE STATUS Full code Medications at Discharge Home Medications cariprazine 1.5 mg capsule (Vraylar) 1.5 mg PO DAILY DEPRESSION 01/02/24 escitalopram oxalate 20 mg tablet 20 mg PO DAILY DEPRESSION 01/02/24 norgestimate 0.25 mg-ethinyl estradiol 35 mcg tablet (Sprintec (28)) 1 tab PO DAILY HORMONES 01/02/24 semaglutide (weight loss) 2.4 mg/0.75 mL subcutaneous pen injector 2.4 mg subcut MO DIABETES 01/02/24 scopolamine base 1 mg over 3 days transdermal patch 1 patch transdermal Q72H PRN nausea and vomiting #4 ea 01/03/24 Hospital Course Operations None Procedures EKG and - (CT brain/MRI Brain/C spine MRI/CTA head and neck) Summary of Care Provided Minutes Spent on Discharge: 38 Hospital Course: BRIA VELÁZQUEZ, is a 28 F who presented to the emergency department at [facility] on 01/02/2024 due to persistent left upper extremity abnormal movement and weakness. Patient stated her symptoms started on Sunday. She stated she ate lunch and then had some nausea and vomiting following which has been intermittent since that point in time. After that she developed some head- nodding which was involuntary. This resolved and then she had bilateral upper extremity twitching. The right upper extremity twitching ceased on the same day however she has had persistent left upper extremity twitching since that point in time. She did go to outside hospital and was sent home from the emergency department on Sunday. Since it has been persistent, she came to this facility. She does have a positive family history of her mother having a stroke in her 40s and from this with family happening to decide to remove her from life support and her father having a massive PE. She also was recently in October and currently trying to finalize the selling of her parents house where she and her are living as a had to go through probate court as it was not in the trust. It sounds as if her work has been stressful lately as well. She denies any other associated symptoms other than some intermittent nausea and vomiting. She denies the possibility that she could be . test is negative she has never had hypercoagulable workup. Vital signs at the time of presentation showed temperature of 97, heart rate 93, blood pressure 136/97, respiratory was 19 and pulse ox was 100% on room air. CBC, coags, and chemistry panel were all unremarkable. CT of the brain was normal. CTA of the head and neck was normal. MRI of the brain was normal, MRI of the cervical spine only showed a small disc herniation on the right side of C6 and C7 however patient was asymptomatic with regards to these findings. EEG was negative per report of the neurologist however the final report is pending at the time of discharge. Neurology did see the patient in consultation and after exam felt that this was a functional tremor. She explained this to her and she was accepting of the diagnosis. CBT was recommended an outpatient with a 3 to 6-month follow-up with neurology if she was still having a tremor. I did discuss the case with her primary care physician prior to discharge and she will get her set up for cognitive behavioral therapy as an outpatient. With regards to her nausea I am concerned that it may be caused by her semaglutide and I am going to have her hold this for couple weeks to see if this does not help her nausea. We will also prescribe a scopolamine patch. She states she was given Phenergan by her PCP but has been intolerant of this as well. She is able to be discharged home in stable condition on 01/03/2024. I would highly recommend she follow-up with hematology for hypercoagulable panel given family history. 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 Nausea and vomiting Family history of PE Depression Physical Exam Const alert, oriented x3, no apparent distress, average body habitus, no limitations, healthy appearing and well nourished Constitutional Narrative: Young, white female, sitting up in bed, appears comfortable, nontoxic, at bedside General Appearance: cooperative, comfortable, well kempt and well developed Exam Limitations: no limitations HEENT normocephalic, head/scalp atraumatic, hearing grossly normal bilaterally and moist oral mucous membranes HEENT Narrative: Mallampati 2, no thrush Eyes conjunctivae normal Eyes Narrative: No scleral icterus Neck supple Neck Narrative: Trachea midline Resp normal respiratory effort, no retractions, no use of accessory muscles and clear to auscultation bilaterally Auscultation: Negative for rales, rhonchi or wheezes Cardio regular rate, regular rhythm, S1 normal heart sound, S2 normal heart sound, no murmurs, no rub, no gallops and no clicks GI normal to inspection, nondistended, normoactive bowel sounds, soft to palpation and non-tender Extremity no clubbing, cyanosis or edema Extremity Narrative: Pedal and radial pulses are 2+ Skin skin turgor normal and no jaundice Neuro oriented x3, CN's II-XII intact bilaterally and moves all extremities Neuro Narrative: Patient still with left upper extremity tremor however it was distractible, Patient has a slight lisp but speech was otherwise normal Psych affect normal Psych Narrative: Seems mildly anxious, eye contact is fair, answers questions appropriately, very pleasant Weight / BMI Weight Weight: 69.1 kg Body Mass Index (BMI) 26.9 ABG / Lab / Microbiology Data 01/02/24 10:41 01/02/24 10:41 Laboratory: Laboratory Results - last 24 hr 01/02/24 10:41: Hemoglobin A1c 4.8, TSH 3.930 H, Free T4 0.86 01/02/24 17:09: POC Glucose 86 01/02/24 20:10: Urine Test Negative 01/02/24 21:33: POC Glucose 109 H 01/03/24 06:06: POC Glucose 105 01/03/24 08:11: Urine Opiates Screen NEGATIVE, Urine Methadone Screen NEGATIVE, Ur Barbiturates Screen NEGATIVE, Ur Phencyclidine Scrn NEGATIVE, Ur Amphetamines Screen NEGATIVE, MDMA (Ecstasy) Screen NEGATIVE, U Benzodiazepines Scrn NEGATIVE, Urine Cocaine Screen NEGATIVE, U Cannabinoids Screen NEGATIVE, Ur Drug Screen Comment 01/03/24 10:00: Urine Color Yellow, Urine Clarity Sl. Cloudy, Urine pH 6.0, Ur Specific [place] 1.020, Urine Protein 30 H, Urine Glucose (UA) Normal, Urine Ketones Negative, Urine Occult Blood Negative, Urine Nitrite Negative, Urine Bilirubin Negative, Urine Urobilinogen 1 H, Ur Leukocyte Esterase 500 H, Urine RBC 0 SEEN, Urine WBC 0-5 SEEN, Ur Squamous Epith Cells 5-10 SEEN, Urine Bacteria 1+, Urine Mucus 0 SEEN 01/03/24 11:51: POC Glucose 98 Radiography Diagnostic Testing: Radiology Impression Brain MRI 01/02/24 12:18 IMPRESSION: Normal unenhanced and enhanced MRI of the brain. Electronically Signed: Kyle James MD at 20:10 EST , Cervical Spine MRI 01/02/24 12:18 IMPRESSION: Disc herniation to the right at C6-7. Electronically Signed: Kyle James MD at 20:15 EST , D/C Instructions Discharge Diet: No restrictions Discharge Activity: Return to Normal Activity Return to work on: 01/04/24 Meaningful Use Info Meaningful Use Meaningful Use Diagnoses (Choose all that apply): None applicable Ischemic Stroke Statin Dosing Therapy Reference: STATIN DOSE THERAPY REFERENCE: * Patients > 75 years receive moderate or high dose statin therapy. * Patients 75 years or YOUNGER should receive HIGH intensity statin dose unless contraindicated. You will be required to document reason for non-treatment if statin daily dose does not meet guidelines. HIGH DOSE STATIN THERAPY DAILY Atorvastatin > than or = to 40 mg Rosuvastatin > than or = to 20 mg Amlodipine + Atorvastatin > than or = to 2.5/40 mg Ezetimibe + Simvastatin 10/80 mg Simvastatin 80mg Discharge Plan Admission Admit Date/Time: 01/02/24 12:06 Primary Reason for Your Visit: Left arm involuntary movement/weakness Attending Provider: Maria Isabel Banerjee Primary Care Provider: Fátima Eubanks [facility] Consulting Providers: Tonya Valentine; Marlen Johnson; Aleks Vaqzuez; Danica Quezada; Deborah Vegas; Hector Oliver; Claudette Woodard; Macie Kim; Maxwell Hernandez; Alayna Redd; Adria Pandya; Sunny Suarez; Emanuel Carreon; Lorrie Mccarthy; Alphonso Hernandez; Scott Myles; Tami Hoang; Joaquim Dela Cruz; Rosemarie Banerjee; Kary Lopez; Felecia Jacobson; Mansoor Mcmahon; Arthur Buchanan; RICKY MAYER; Oswaldo Saleh; Lacey Paulson Instructions Additional Instructions / Restrictions: 1. Hold semaglutide for 2 weeks to see if this does not help your nausea and vomiting. This drug does have a known side effect of nausea and vomiting. Discharge Orders/Prescriptions Prescriptions: New scopolamine base 1 mg over 3 days patch 3 day 1 patch transdermal Q72H PRN (Reason: nausea and vomiting) Qty: 4 0RF Continued semaglutide (weight loss) 2.4 mg/0.75 mL pen injector 2.4 mg subcut MO escitalopram oxalate 20 mg tablet 20 mg PO DAILY Vraylar 1.5 mg capsule 1.5 mg PO DAILY norgestimate-ethinyl estradiol [Sprintec (28)] 0.25-35 mg-mcg tablet 1 tab PO DAILY Referrals / Follow Up: Charlie Garcia DO [Med Staff - Exerciser] - Within 2 Weeks Delmi Calzada [Non-Staff] - Fátima Eubanks Kate, [facility] TIPPER-C [Primary Care Provider] - Within 2 Weeks Disposition Disposition (needs filled in before D/C Order can be placed): Home, Self Care Charges/Coding Visit Charges Inpatient E&M: 30052 Disch Hosp >30min
[2024-01-03] MEDS: FLU VACC 2024-25(6MOS UP)/PF 45 MCG/0.5 ML SYRINGE IM (15:05)
[2024-01-03 15:18] VITALS: BMI 26.9
--- NOTE | 2024-01-03 15:33 | CHAPLAIN ---
Type of Pastoral Visit _x__ Initial Visit ___ Follow-up Visit ___ On-call Visit ___ General Patient Visit ___ Spiritual Assessment ___ Family Conference ___ Bereavement ___ Rapid Response ___ Code Blue ___ Other (describe below) Pastoral Care Referral From _x__ Patient ___ Family ___ Nurse ___ Physician ___ Cna Instructor ___ Hris Coordinator ___ Other (describe below) Sacrament/Intervention ___ Active listening ___ Anointing ___ Orthodoxy ___ Bereavement ___ Communion ___ Ling exploration ___ ___ Life review _x__ Prayer ___ Reconciliation ___ Sacrament of Sick _x__ Supportive presence ___ Wedding ___ Other (describe below) Pastoral Comments patient is getting ready to leave the hospital and spouse is with her; pt states that her health concern may have been caused by stress and that she has a plan for intervention following discharge; pt is hopeful that this will be resolved; pt states that a prayer would be welcomed and appreciated at this time which was given; offer of any further support given but both state that they are doing fine right now
== END 2024-01-03 14:53 | disposition home or self-care (01) ==
LOC: ED 11:37 → PCU 13:05
PROVIDERS: Admitting Provider Internal Medicine; Emergency Provider Emergency Medicine; PCP Nurse Practitioner Family; Visit Provider Internal Medicine
DX: R29.898 Other symptoms and signs involving the musculoskeletal system (principal); R56.9 Unspecified convulsions; R11.2 Nausea with vomiting, unspecified; Z87.891 Personal history of nicotine dependence; Z23 Encounter for immunization; R20.0 Anesthesia of skin; R29.818 Other symptoms and signs involving the nervous system; R25.1 Tremor, unspecified; Z79.899 Other long term (current) drug therapy; F32.A Depression, unspecified
CPT/HCPCS: 70450; 70496; 70498; 70553; 72141; 80048; 80307; 81001; 81025; 82607; 82962; 83036; 84439; 84443; 84484; 85025; 85610; 85730; 90656; 93005; 94668; 95819; 97161; 97166; 99221; 99285; A9579; Q9967; A4216; G0378

== ENCOUNTER → 2024-01-22 | Outpatient (CLI) | payer OTHER, SELFPAY | END | disposition home or self-care (01) | PROVIDERS: PCP Nurse Practitioner Family; Visit Provider Nurse Practitioner Family | DX: Z00.00 Encounter for general adult medical examination without abnormal findings (principal); Z83.2 Family history of diseases of the blood and blood-forming organs and certain disorders involving the immune mechanism | CPT/HCPCS: 36415 ==

== ENCOUNTER 2024-07-28 16:33 | Emergency (ER) | payer OTHER, SELFPAY ==
[2024-07-28 16:33] VITALS: BP 127/87; PULSE 96; RESP 19; TEMP 36.7; O2SAT 100; BMI 27.3
--- NOTE | 2024-07-28 18:26 | EDS_ITS ---
HPI History of Present Illness Chief Complaint: Abn Labs Narrative Narrative: 28-year-old female who denies significant past medical history presents for CTA secondary to elevated D-dimer. She relates history that she gave blood on , approximately 5 days ago. No history of anemia. She states that since then she has felt heart palpitations and a high heart rate. She states that her heart rates been as high as 150 bpm but usually hangs out between 110- 120. She saw primary care provider today who did laboratory work including CBC, BMP, and tests which were all negative. She complains about chest tightness in the middle of her chest. No nausea or vomiting. She feels somewhat fatigued as well. She does not have pleuritic chest pain but they performed a D-dimer which was elevated. She was sent to the emergency department for CTA. She denies any bleeding diathesis, no dark stool, no other exacerbating or alleviating factors. [facility] PFS Medical History Depression Home Medications ?Medication ?Instructions ?Recorded ?Last Taken ?Type cariprazine 1.5 mg capsule 1.5 mg PO DAILY DEPRESSION 01/02/24 01/02/24 History (Vraylar) escitalopram oxalate 20 mg tablet 20 mg PO DAILY DEPRE SSION 01/02/24 01/02/24 History norgestimate 0.25 mg-ethinyl 1 tab PO DAILY HORMONES 1 03/03/23 01/02/24 History estradiol 0.035 mg tablet (Sprintec (28)) semaglutide (weight loss) 2.4 2.4 mg subcut MO DIABETE S 01/02/24 12/31/23 History mg/0.75 mL subcutaneous pen injector scopolamine base 1 mg over 3 days 1 patch transdermal Q72H PRN 01/03/24 Unknown Rx transdermal patch nausea and vomiting #4 ea Allergy/AdvReac Type Severity Reaction Status Date / Time ondansetron (From Zofran) Allergy Intermediate Hives Verified 07/28/24 16:35 codeine Allergy NEEDS Verified 07/28/24 16:35 FOLLOW-UP Family History Mother CVA (cerebral vascular accident) Diabetes Father Pulmonary embolus Social History household members: spouse housing: house number of children: 0 current occupational status: employed 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 No fevers or chills, no cough, no pleuritic chest pain. No dark stool/black stool, denies other bleeding diathesis. EXAM Physical Exam Narrative Exam Narrative: Afebrile. Vital signs noted. Nontoxic-appearing. Cardiovascular examination reveals a regular rate and rhythm. Lungs are clear to auscultation bilaterally. Abdomen is soft and nontender with no guarding or rebound. Positive bowel sounds. Neurological examination is nonfocal, nonlateralizing. No pallor. Const Vital Signs: 07/28/24 16:33 07/28/24 18:03 07/28/24 18:53 Temperature 98.1 F Temperature Source Oral Pulse Rate 96 80 Respiratory Rate 19 H 16 Respiratory Effort Normal Non-Labored Respiratory Pattern Normal Blood Pressure 127/87 H 114/84 H Blood Pressure Mean 100 94 Pulse Ox 100 100 Oxygen Delivery Method Room Air Room Air 07/28/24 20:00 Temperature Temperature Source Pulse Rate 95 Respiratory Rate 16 Respiratory Effort Respiratory Pattern Blood Pressure 123/79 H Blood Pressure Mean 93 Pulse Ox 100 Oxygen Delivery Method Room Air MDM MDM MDM Narrative Medical decision making narrative: Differential diagnosis includes but not limited to anemia, but given her elevated D-dimer and reported high heart rate, concern would be for pulmonary embolism. I reviewed her laboratory work as an outpatient and she does not have a severe anemia which would require blood transfusion. She has normal kidney function and test/quantitative beta-hCG is less than 1 indicating negative . I will obtain an EKG and she has normal heart rate here currently. Additionally, CTA will be obtained to rule out PE. EKG was obtained and interpreted by myself independently as normal sinus rhythm at 78 bpm without ectopy or acute ST changes. No STEMI. I reviewed the radiology report of the CTA which shows no evidence of a pulmonary embolism and no acute chest abnormality. At this point in time, I feel she can be discharged to follow-up with her primary care provider. She may need to wear a Holter monitor, and/or follow-up with cardiology. Currently, she has normal heart rate. She is motivated for discharge. Return instructions were reviewed. Disposition is discharged home in stable condition. Radiography Diagnostic Testing: Clinical Impression(s) from Imaging Studies Chest CTA 07/28/24 18:26 IMPRESSION: No pulmonary embolism. No acute chest abnormality. Reading Location: [place] [address] Discharge Plan Triage Chief Complaint: Abn Labs ED Provider: Trip Patel Dx/Rx/DC Orders Clinical Impression: Palpitations, Elevated d-dimer Instructions: ED About Arrhythmias, ED Palpitations Prescriptions: No Action semaglutide (weight loss) 2.4 mg/0.75 mL pen injector 2.4 mg subcut MO escitalopram oxalate 20 mg tablet 20 mg PO DAILY Vraylar 1.5 mg capsule 1.5 mg PO DAILY norgestimate-ethinyl estradiol [Sprintec (28)] 0.25-35 mg-mcg tablet 1 tab PO DAILY scopolamine base 1 mg over 3 days patch 3 day 1 patch transdermal Q72H PRN (Reason: nausea and vomiting) Qty: 4 0RF Primary Care Provider: Fátima Eubanks Referrals: Fátima Eubanks, DOCUMENT PREPARATION SPECIALIST-C [Primary Care Provider] - 1 Week if not improving Activity Restrictions/Additional Instructions: Follow-up with your primary care provider. Your CT scan was negative for any pulmonary embolism. If you continue to have palpitations, you may need to wear a Holter monitor, or be referred to/follow-up with cardiology. Return to the emergency department with new or worsening symptoms. Print Language: [place] Disposition Disposition: Home, Self Care
--- NOTE | 2024-07-28 18:26 | EKG12_ITS ---
Test Reason : ABD LABS Blood Pressure : */* mmHG Vent. Rate : 78 BPM Atrial Rate : 78 BPM P-R Int : 164 ms QRS Dur : 78 ms QT Int : 382 ms P-R-T Axes : 68 36 39 degrees QTcB Int : 435 ms Normal sinus rhythm Normal ECG Confirmed by Andre Salas ([id number]), production editor MICHELLE AGUILAR ([id number]) on 07/29/2024 9:56:54 AM Referred By: Confirmed By: Andre Salas
--- NOTE | 2024-07-28 18:26 | CT_ITS ---
PROCEDURE: CTA CHEST W/WO CONTRAST 07/28/2024 REASON FOR EXAM: ELEVATED D-DIMER TECHNIQUE: CTA axial imaging of the chest with intravenous contrast. Multiplanar and multisequence images were obtained. One or more dose reduction techniques were used (e.g., Automated exposure control, adjustment of the mA and/or kV according to patient size, use of iterative reconstruction technique). RADIATION DOSE SUMMARY: CTDlvol: 3.00+ 5.19 mGy DLP: 176.46 mGycm . COMPARISON: None. FINDINGS: The peripheral soft tissues are unremarkable. No acute osseous abnormalities. The thyroid is unremarkable. The esophagus is normal in caliber. The upper abdominal contents are unremarkable. Normal caliber thoracic aorta. No lymphadenopathy. The heart is normal in size. No pulmonary artery filling defects to the subsegmental level. The lungs are clear. CT/CTA Chest W/WO Contrast IMPRESSION: No pulmonary embolism. No acute chest abnormality. Reading Location: [place] [id number]
[2024-07-28 18:53] VITALS: BP 114/84; PULSE 80; RESP 16; O2SAT 100
[2024-07-28 20:00] VITALS: BP 123/79; PULSE 95; RESP 16; O2SAT 100
[2024-07-28 20:33] VITALS: BP 118/77; PULSE 93; RESP 16; TEMP 36.7; O2SAT 100
== END 2024-07-28 20:36 | disposition home or self-care (01) ==
PROVIDERS: Emergency Provider Emergency Medicine; PCP Nurse Practitioner Family; Visit Provider Emergency Medicine
DX: R00.2 Palpitations (principal); R79.89 Other specified abnormal findings of blood chemistry; Z87.891 Personal history of nicotine dependence
CPT/HCPCS: 71275; 93005; 99283; Q9967; A4216

== ENCOUNTER → 2024-07-28 | Outpatient (CLI) | payer OTHER, SELFPAY ==
[2024-07-28 14:07] LABS: Absolute Lymphocyte Count 2.38 X10^3/uL (0.83-4.51); Absolute Neutrophil Count 4.5 X10^3/uL (2.0-7.7); Eosinophil# 0.03 X10^3/uL; Eosinophils% 0.4 % (0-5); Hematocrit 34.7 % (37-47); Hemoglobin 11.9 g/dL (12.0-15.0); Lymphocyte # 2.38 X10^3/ul (0.83-4.51); Lymphocyte % 32.6 % (19-41); Mean Corp Hgb Conc 34.3 g/dL (32-36); Mean Corpuscular Hgb 28.9 pg (27.0-32.0); Mean Corpuscular Volume 84.2 fL (81-99); Mean Platelet Vol. 10.3 fl (6.2-12.0); Monocyte# 0.36 X10^3/uL; Monocyte% 4.9 % (0-10); NRBC Flagged by Analyzer 0 % (0-5); Neutrophil % 61.8 % (47-70); Platelet Count 286 K/mm3 (150-450); RBC Distribution Width CV 13.3 % (11.6-14.6); RBC Distribution Width SD 41.1 fl (35.1-43.9); Red Blood Count 4.12 M/mm3 (4.2-5.4); White Blood Count 7.3 K/mm3 (4.4-11.0)
[2024-07-28 14:11] LABS: D-Dimer Quantitative (DVT/PE) 1.58 FEU/ug/m (0.27-0.49)
[2024-07-28 14:20] LABS: ALB/GLOB Ratio 1.8 RATIO (0.9-2.4); AST(SGOT) 20 U/L (<=31); Alanine Aminotransfer ALT/SGPT 15 U/L (<=34); Albumin, Serum 4.6 g/dL (3.5-5.0); Alkaline Phosphatase 56 U/L (35-104); Anion Gap 11 (5-15); BUN 7 mg/dL (4-19); BUN/Creat Ratio 8.4 RATIO (10-20); Calcium,Total 9.4 mg/dL (7.6-11.0); Carbon Dioxide 22.3 mmol/L (21.0-32.0); Chloride 104 mmol/L (98-108); Creatinine, Serum 0.81 mg/dL (0.70-1.20); EST Glomerular Filtration Rate 100 (>60); Ferritin 22 ng/mL (22-378); Globulin 2.5 g/dL (2.2-4.2); Glucose 93 mg/dL (70-99); Iron 30 ug/dL (50-170); Iron Binding Capacity,Total 371 ug/dL (250-450); Iron Binding Capacity,Unsat 341 ug/dL (228-428); Protein, Total 7.1 g/dL (5.9-8.4); Sodium Level 138 mmol/L (133-145); Total Bilirubin 0.26 mg/dL (0.00-1.30)
[2024-07-28 14:22] LABS: hCG Titer Quant., Serum < 1 mIU/mL (<9 non-preg)
== END | disposition home or self-care (01) ==
LOC: LAB 12:28
PROVIDERS: PCP Nurse Practitioner Family; Referring Provider Nurse Practitioner Family; Visit Provider Nurse Practitioner Family
DX: R00.0 Tachycardia, unspecified (principal)
CPT/HCPCS: 36415; 80053; 82728; 83540; 83550; 83735; 84443; 84702; 85025; 85379

== ENCOUNTER → 2024-09-22 | Outpatient (CLI) | payer OTHER, SELFPAY ==
--- NOTE | 2024-09-22 08:06 | ECHOD_ITS ---
Reason For Study Reason For Study: TACHYCARDIA Procedure This was a 2D Doppler, Color Flow transthoracic echocardiogram. Exam performed in department. Left Ventricle Normal LV size. The left ventricular ejection fraction is 60 %. Normal diastology for age. No regional wall motion abnormalities noted. Right Ventricle Normal RV size. Normal systolic function. Atria Normal left atrium. Normal right atrium. Mitral Valve Normal mitral valve. Tricuspid Valve Normal tricuspid valve. Aortic Valve Normal aortic valve. Trisinus/trileaflet aortic valve. Pulmonic Valve Normal pulmonic valve. Great Vessels Normal aortic root. The pulmonary artery is normal size. Inferior vena cava collapse with respiration. Pericardium/Pleural No pericardial effusion. MMode/2D Measurements & Calculations LVIDd: 4.5 cm IVSd: 0.88 cm Ao root diam: 2.9 cm LVIDs: 3.0 cm LVPWd: 1.2 cm RVDd: 2.5 cm FS: 34.0 % LAV(MOD-bp): 21.7 ml LVAd ap4: 26.2 cm2 SV(MOD-sp4): 40.0 ml LAV(MOD-bp) Indexed: 12.5 ml/m2 LVLd ap4: 8.4 cm SI(MOD-sp4): 23.1 ml/m2 LAV(MOD-sp2): 19.7 ml EDV(MOD-sp4): 69.7 ml LAV(MOD-sp4): 21.4 ml EDV(sp4-el): 69.2 ml LVAs ap4: 14.9 cm2 LVLs ap4: 6.7 cm ESV(MOD-sp4): 29.6 ml ESV(sp4-el): 28.2 ml EF(MOD-sp4): 57.5 % EF(sp4-el): 59.2 % SV(sp4-el): 40.9 ml LA A4 area: 10.8 cm2 RA A4 area: 11.1 cm2 Time Measurements MV dec time: 0.18 sec Doppler Measurements & Calculations MV E max cristian: 67.5 cm/sec Lat Peak E' Cristian: 22.7 cm/sec Med Peak E' Cristian: 19.4 cm/sec MV A max cristian: 66.4 cm/sec E/E' lat: 3.0 E/E' med: 3.5 MV E/A: 1.0 MV V2 max: 76.2 cm/sec Ao V2 max: 116.6 cm/sec MV max P.3 mmHg MV dec slope: 369.3 cm/sec2 Ao max P.4 mmHg MV V2 mean: 56.7 cm/sec Ao V2 mean: 78.3 cm/sec MV mean P.4 mmHg Ao mean P.9 mmHg MV V2 VTI: 20.6 cm Ao V2 VTI: 20.5 cm AV (velocity ratio): 1.0 LV V1 max: 120.6 cm/sec PA V2 max: 108.8 cm/sec LV V1 max P.8 mmHg PA V2 mean: 79.4 cm/sec LV V1 mean P.1 mmHg LV V1 mean: 82.5 cm/sec LV V1 VTI: 21.4 cm ECHO/Echo Complete Interpretation Summary Normal LV size. The left ventricular ejection fraction is 60 %. Normal diastology for age. Structurally normal valves. Ordering Physician: Rohan^Rosey^^^TIER LIFT TRUCK OPERATOR-C Referring Physician: Rosey Madrigal Performed By: Sarah Ramos RCS
== END | disposition home or self-care (01) ==
LOC: CVS 08:05
PROVIDERS: PCP Nurse Practitioner Family; Referring Provider Nurse Practitioner Family; Visit Provider Nurse Practitioner Family
DX: R00.0 Tachycardia, unspecified (principal)
CPT/HCPCS: 93225; 93226; 93306

== ENCOUNTER → 2025-01-06 | Outpatient (CLI) | payer OTHER, SELFPAY ==
[2025-01-05 17:12] LABS: Hematocrit 37.1 % (37-47); Hemoglobin 12.3 g/dL (12.0-15.0); Mean Corp Hgb Conc 33.2 g/dL (32-36); Mean Corpuscular Volume 84.5 fL (81-99); Mean Platelet Vol. 10.1 fl (6.2-12.0); Platelet Count 285 K/mm3 (150-450); RBC Distribution Width CV 13.5 % (11.6-14.6); RBC Distribution Width SD 41.8 fl (35.1-43.9); Red Blood Count 4.39 M/mm3 (4.2-5.4); White Blood Count 8.8 K/mm3 (4.4-11.0)
[2025-01-05 17:39] LABS: Anion Gap 11 (5-15); BUN 12 mg/dL (4-19); BUN/Creat Ratio 12.5 RATIO (10-20); Calcium,Total 9.7 mg/dL (7.6-11.0); Carbon Dioxide 24.0 mmol/L (21.0-32.0); Chloride 102 mmol/L (98-108); Glucose 88 mg/dL (70-99); Potassium 4.0 mmol/L (3.3-5.1)
[2025-01-05 17:45] LABS: hCG Titer Quant., Serum < 1 mIU/mL (<9 non-preg)
--- NOTE | 2025-01-09 15:31 | PCM.TILTTABL ---
Staff Staff: Zulema Parker Summary Pre Test Resting HR: 86 Pre Test Resting BP: 120/94 Minimum Test HR: 86 Maximum Test HR: 101 Minimum Test BP: 115/90 Maximum Test BP: 130/96 Reason for Test Termination: Reached Maximum Test Time Physician Tilt Table Report Patient's Physicians Primary Care Physician: Fátima Eubanks [facility] Indications/Diagnosis: Palpitations Procedure Comments: Patient came to the cardiac catheterization lab in the postabsorptive nonsedated state. Informed consent was obtained. Initial heart rate was 68 bpm with a blood pressure of 116/77 mmHg. The patient was then put in the 70 degree head upright tilt position. The immediate heart rate was 86 bpm with a blood pressure of 120/94 mmHg and after 30 minutes the patient maintained sinus rhythm with a peak heart rate of 100 bpm and the peak blood pressure of 130/96 mmHg and then 122/101 mmHg. No symptoms were noted during the testing. The patient was then placed back in the recumbent position. Summary: Negative head upright tilt table test
[2025-01-09 15:35] VITALS: BP 115/90; BP 120/94; BP 130/96
== END | disposition home or self-care (01) ==
PROVIDERS: PCP Nurse Practitioner Family; Referring Provider Internal Medicine Cardiovascular Disease; Visit Provider Internal Medicine Cardiovascular Disease
DX: R00.2 Palpitations (principal)
CPT/HCPCS: 36415; 80048; 84702; 85027; 93660